=== PATIENT | male | born 1990 | race American Indian/Alaskan Native ===

== ENCOUNTER 2022-03-07 09:16 | Emergency (ER) | payer SELFPAY ==
[2022-03-07 09:38] VITALS: BP 145/87
--- NOTE | 2022-03-07 10:09 | XRay Report ---
CHEST 2 VIEWS INDICATION / CLINICAL INFORMATION: Chest Pain. COMPARISON: None available. FINDINGS: SUPPORT DEVICES: None. HEART / MEDIASTINUM: No significant abnormality. LUNGS / PLEURA: No significant pulmonary or pleural abnormality. No pneumothorax. ADDITIONAL FINDINGS: No significant additional findings. IMPRESSION: 1. No acute findings. Signer Name: Eliud Montgomery MD Signed: 03/07/2022 10:04 AM Workstation Name: [id number]
[2022-03-07 10:44] LABS: Basophils % (Auto) 0.5 % (0.0-1.8); Eosinophils # (Auto) 0.1 K/mm3 (0.0-0.4); Eosinophils % (Auto) 2.3 % (0.0-4.3); Hematocrit 44.9 % (35.5-45.6); Hemoglobin 15.1 gm/dl (11.8-15.2); Lymphocytes % (Auto) 47.6 % (13.4-35.0); Mean Corpuscular HGB Conc 34 % (32-34); Mean Corpuscular Volume 89 fl (84-94); Monocytes # (Auto) 0.3 K/mm3 (0.0-0.8); Monocytes % (Auto) 7.9 % (0.0-7.3); Platelet Count 262 K/mm3 (140-440); Red Blood Count 5.05 M/mm3 (3.65-5.03); Red Cell Distribution Width 12.9 % (13.2-15.2)
[2022-03-07 10:59] LABS: Alanine Aminotransferase 15 units/L (7-56); Albumin 4.6 g/dL (3.9-5); BUN/Creatinine Ratio 16; Blood Urea Nitrogen 16 mg/dL (9-20); Calcium 9.7 mg/dL (8.4-10.2); Hemolysis Index 10
--- NOTE | 2022-03-07 14:34 | Emergency Department Report ---
ED Chest Pain HPI - General Chief Complaint: Chest Pain Stated Complaint: CHEST PAIN/SOB Time Seen by Provider: 03/07/22 13:53 Source: patient Mode of arrival: Ambulatory Limitations: No Limitations - History of Present Illness Initial Comments: 31-year-old male with a past medical history of an unclear congenital cardiac disorder presents to the hospital planing of intermittent left-sided chest pain x2 days. Symptoms started while sitting on the bed smoking cigarettes. It was in the left lateral lower chest area, sharp, intermittent, and worse with lifting his arms above his head. Patient denies associated symptoms including shortness of breath, nausea, vomiting, cough, fever, diaphoresis, recent travel, calf tenderness, or leg edema. Patient denies family history of CAD, hypertension, diabetes, or elevated cholesterol. 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 This required every 3 month cardiac evaluation until the age of 9 then he saw a rn liaison once a year. He was cleared by cardiology at age 14 and has not followed up since. Patient does not currently have a primary care doctor - Related Data Allergies Allergy/AdvReac Type Severity Reaction Status Date / Time No Known Allergies Allergy Verified 03/07/22 09:37 Heart Score - HEART Score History: Slightly suspicious EKG: Normal Age: < 45 Risk factors: 1-2 risk factors Troponin: < normal limit HEART Score: 1 - EKG Read Time Time EKG Completed: 09:40 EKG Read Time: 09:47 ED Review of Systems ROS: Stated complaint: CHEST PAIN/SOB Other details as noted in HPI Comment: All other systems reviewed and negative ED Past Medical Hx - Past Medical History Previous Medical History?: No ED Physical Exam - General Limitations: No Limitations - Other Other exam information: General: No acute distress Head: Atraumatic Eyes: normal appearance ENT: Moist mucous membranes Neck: Normal appearance, no midline tenderness Chest: Clear to auscultation bilaterally, nontender chest wall CV: Regular rate and rhythm Abdomen: Soft, normal bowel sounds, nontender, nondistended, no rebound or guarding Back: Normal inspection Extremity: Normal inspection, full range of motion, no calf tenderness or leg Neuro: Alert O x 3, no facial asymmetry, speech clear, no gross motor sensory deficit Psych: Appropriate behavior Skin: No rash ED Course Vital Signs 03/07/22 09:34 Temperature 98.8 F Pulse Rate 70 Respiratory 16 Rate Blood Pressure 145/87 O2 Sat by Pulse 95 Oximetry JAVIER score - Javier Score Age > 65: (0) No Aspirin use within the Past 7 Days: (0) No 3 or more CAD Risk Factors: (0) No 2 or more Angina events in past 24 hrs: (0) No Known CAD with more than 50% Stenosis: (0) No Elevated Cardiac Markers: (0) No ST Deviation Greater than 0.5mm: (0) No JAVIER Score: 0 ED Medical Decision Making - Lab Data Result diagrams: 03/07/22 09:44 03/07/22 09:44 Lab Results 03/07/22 03/07/22 Range/Units 09:44 09:44 WBC 4.1 L (4.5-11.0) K/mm3 RBC 5.05 H (3.65-5.03) M/mm3 Hgb 15.1 (11.8-15.2) gm/dl Hct 44.9 (35.5-45.6) % MCV 89 (84-94) fl MCH 30 (28-32) pg MCHC 34 (32-34) % RDW 12.9 L (13.2-15.2) % Plt Count 262 (140-440) K/mm3 Lymph % (Auto) 47.6 H (13.4-35.0) % Phillips % (Auto) 7.9 H (0.0-7.3) % Eos % (Auto) 2.3 (0.0-4.3) % Baso % (Auto) 0.5 (0.0-1.8) % Lymph # (Auto) 2.0 (1.2-5.4) K/mm3 Phillips # (Auto) 0.3 (0.0-0.8) K/mm3 Eos # (Auto) 0.1 (0.0-0.4) K/mm3 Baso # (Auto) 0.0 (0.0-0.1) K/mm3 Seg Neutrophils % 41.7 (40.0-70.0) % Seg Neutrophils # 1.7 L (1.8-7.7) K/mm3 Sodium 137 (137-145) mmol/L Potassium 4.2 (3.6-5.0) mmol/L Chloride 100.4 (98-107) mmol/L Carbon Dioxide 27 (22-30) mmol/L Anion Gap 14 mmol/L BUN 16 (9-20) mg/dL Creatinine 1.0 (0.8-1.3) mg/dL Estimated GFR > 60 ml/min BUN/Creatinine Ratio 16 % Glucose 115 H (75-100) mg/dL Calcium 9.7 (8.4-10.2) mg/dL Total Bilirubin 0.60 (0.1-1.2) mg/dL AST 17 (5-40) units/L ALT 15 (7-56) units/L Alkaline Phosphatase 49 (35-129) units/L Troponin T < 0.010 (0.00-0.029) ng/mL Total Protein 7.2 (6.3-8.2) g/dL Albumin 4.6 (3.9-5) g/dL Albumin/Globulin Ratio 1.8 % - EKG Data -: EKG Interpreted by Me EKG shows normal: sinus rhythm, ST-T waves (No STEMI) Rate: normal - EKG Data When compared to previous EKG there are: previous EKG unavailable - Radiology Data Radiology results: report reviewed (Chest x-ray: No acute finding) - Medical Decision Making 31-year-old male smoker with unknown congenital heart disorder presents to the hospital with atypical left-sided chest pain without associated symptoms. Pat ient states he has been pain-free since 3 AM. EKG without signs of ST elevation SD. Troponin negative. Patient has a heart score of 1 and a PERC score of 0. Patient informed of symptoms of CAD/SD and will be provided outpatient follow-up for PMD and cardiology. Critical Care Time: No Critical care attestation.: If time is entered above; I have spent that time in minutes in the direct care of this critically ill patient, excluding procedure time. ED Disposition Clinical Impression: Atypical chest pain Disposition: 01 HOME / SELF CARE / HOMELESS Is pt being admited?: No Does the pt Need Aspirin: No Condition: Stable Instructions: Nonspecific Chest Pain, Adult Additional Instructions: Take Motrin as needed for pain. Follow-up with a primary care doctor and rn liaison for further assessment. Return if symptoms worsen as indicated by your discharge instructions. Referrals: AMANDA GUARDADO MD [Staff Physician] - 3-5 Days TEN ALEJANDRA MD [Staff Physician] - 3-5 Days [facility] [Provider Group] - 3-5 Days Time of Disposition: 14:37
--- NOTE | 2022-03-08 09:38 | Electrocardiograph Report ---
[facility] Test Date: 2022-03-07 Test Time: 09:40:21 Pat Name: KARISSA GONZALEZ Department: Room: Gender: M Bill Checker: JUAN : 1990 Requested By: ED DOC Order Number: [id number] Reading MD: Long Coleman Measurements Intervals [place] Rate: 70 P: 27 RI: 198 QRS: 77 QRSD: 89 T: 13 QT: 362 QTc: 390 Interpretive Statements Sinus rhythm ST elev, probable normal early repol pattern No previous ECG available for comparison Electronically Signed On 03-08-2022 9:37:42 EDT by Long Coleman
== END 2022-03-07 15:12 | disposition home or self-care (01) ==
LOC: ED 09:16
DX: R07.89 Other chest pain (principal)
CPT/HCPCS: 36415; 71046; 80053; 84484; 85025; 93005; 99283